=== PATIENT | male | born 1990 | race Caucasian/White ===

== ENCOUNTER 2017-12-31 12:27 | Emergency (ER) | payer MEDICAID, OTHER ==
[~2017-12-31] VITALS: Ht 190.5 cm; Wt 86.2 kg
[2017-12-31] MEDS ORDERED: fentaNYL/PF 50MCG/1 ML 2ML syringe IV ONE ×2 (12:55→13:05)
[2017-12-31] MEDS ORDERED: ondansetron/PF 4mg/2ml inj IV ONE (12:55)
[2017-12-31] MEDS ORDERED: TETanus/Pertussis (Acell)/Diphther VAC/PF (Tdap-Adult) 0.5ml syringe IM ONE (13:05)
[2017-12-31] MEDS ORDERED: proCHLORperazine 10 MG/2 ml inj IV ONE (13:05)
[2017-12-31] MEDS ORDERED: BUPIVAcaine/PF 2.5 mg/ml (0.25%) 30ml vial IJ ONE ×2 (13:05→14:50)
[2017-12-31] MEDS ORDERED: iohexol 300mg/ml 100ml inj. ONE (13:12)
[2017-12-31 13:19] LABS: INR 1.1 INR; PARTIAL THROMBOPLASTIN TIME 22 SECONDS (22-32); PROTHROMBIN TIME 11.1 SECONDS (9.0-12.0)
[2017-12-31 13:49] LABS: CKMB RELATIVE INDEX 0.4 RATIO (0-2.5); CREATINE KINASE 427 U/L (39-308)
[2017-12-31 14:05] LABS: TROPONIN I < 0.04 NG/ML (0.0-0.05)
[2017-12-31 14:06] LABS: ETHANOL < 0.010 GM/DL (0.0-0.010)
[2017-12-31] MEDS ORDERED: BUPIVAcaine/PF 2.5 mg/ml (0.25%) 30ml vial ONE (14:48)
[2017-12-31] MEDS ORDERED: LIDOcaine Viscous 15ml cup MM STA (14:57)
[2017-12-31] MEDS ORDERED: ceFAZolin inj. 2,000 MG in normal saline 100ml IV soln 100 ML IV ONE (15:15)
[2017-12-31] MEDS ORDERED: bacitracin 15gm ointment TP ONE (15:25)
[2017-12-31] MEDS ORDERED: ceFAZolin inj. 2,000 MG in dextrose 5%-water 100 ML IV SCH (16:00)
[2017-12-31 16:31] LABS: URINE AMPHETAMINE SCREEN NEGATIVE (Neg); URINE BARBITUATE SCREEN NEGATIVE (Neg); URINE BENZODIAZEPINES SCREEN NEGATIVE (Neg); URINE CANNABINOID SCREEN POSITIVE (Neg); URINE COCAINE SCREEN NEGATIVE (Neg); URINE METHADONE SCREEN NEGATIVE (Neg); URINE OPIATE SCREEN NEGATIVE (Neg); URINE PHENCYCLIDINE SCREEN NEGATIVE (Neg)
[2017-12-31 16:34] LABS: CLARITY,URINE CLEAR (Clear); COLOR,URINE YELLOW (Yellow); GLUCOSE, URINE NEGATIVE (Neg); KETONES,URINE 15 mg/dl (Neg); LEUKOCYTE ESTERASE ,URINE NEGATIVE (Neg); NITRITES, URINE NEGATIVE (Neg); OCCULT BLOOD,URINE TRACE-INTACT (Neg); PH,URINE 5.5 (4.8-8.0); PROTEIN,URINE 30 mg/dl (Neg); UROBILINOGEN,URINE 0.2 E.U/dL (0.2-1.0)
[2017-12-31 16:36] LABS: UA COLLECTION TYPE CLN CATCH MIDSTREAM
[2017-12-31] MEDS: fentaNYL/PF 50MCG/1 ML 2ML syringe IV PRN ×2 (16:39→17:05)
[2017-12-31] MEDS ORDERED: HYDR-565 PO (16:40)
[2017-12-31] MEDS ORDERED: ONDA4TAB9 PO (16:40)
[2017-12-31] MEDS ORDERED: CEPH-572 PO (16:40)
[2017-12-31 16:51] LABS: BACTERIA,URINE NONE SEEN /HPF (Neg); MUCUS STRANDS NONE SEEN /LPF (Neg); RBC,URINE NONE SEEN /HPF (0-2); SQUAMOUS EPITHELIAL CELL,UR NONE SEEN /LPF (FEW); WBC,URINE NONE SEEN /HPF (0-4)
[2017-12-31 17:57] LABS: BASOPHILS % (AUTO) 0.4 % (0-1); EOSINOPHILS # (AUTO) 0.2 X10'3 (0-0.9); HEMATOCRIT 43.2 % (42.0-52.0); HEMOGLOBIN 14.8 g/dl (14.0-17.9); LYMPHOCYTES # (AUTO) 2.9 X10'3 (1.1-4.8); LYMPHOCYTES % (AUTO) 31.4 % (21-51); MEAN CORPUSCULAR HEMOGLOBIN 31.3 PG (27.0-31.0); MEAN CORPUSCULAR HGB CONC 34.4 % (33.0-36.5); MEAN CORPUSCULAR VOLUME 91.1 FL (78-98); MEAN PLATELET VOLUME 8.1 FL (7.4-10.4); MONOCYTES # (AUTO) 0.5 X10'3 (0-0.9); MONOCYTES % (AUTO) 5.7 % (2-12); NEUTROPHILS # (AUTO) 5.6 X10'3 (1.8-7.7); NEUTROPHILS % (AUTO) 60.5 % (42-75); PLATELET COUNT 210 X10'3 (140-440); RED BLOOD COUNT 4.74 X10'6 (4.70-6.10); RED CELL DISTRIBUTION WIDTH 13.2 % (11.5-14.5); WHITE BLOOD COUNT 9.3 X10'3 (4.5-11.0)
[2017-12-31 18:42] VITALS: BP 118/52
== END 2017-12-31 18:45 | disposition home or self-care (01) ==
LOC: ER 12:29
DX: S06.0X0A Concussion without loss of consciousness, initial encounter (principal); S01.81XA Laceration without foreign body of other part of head, initial encounter; S61.411A Laceration without foreign body of right hand, initial encounter; S01.112A Laceration without foreign body of left eyelid and periocular area, initial encounter; S16.1XXA Strain of muscle, fascia and tendon at neck level, initial encounter; S20.219A Contusion of unspecified front wall of thorax, initial encounter; S30.811A Abrasion of abdominal wall, initial encounter; S80.212A Abrasion, left knee, initial encounter; S40.812A Abrasion of left upper arm, initial encounter; W17.81XA Fall down embankment (hill), initial encounter; Y93.55 Activity, bike riding; Y92.89 Other specified places as the place of occurrence of the external cause; Y99.8 Other external cause status
CPT/HCPCS: 12002; 12014; 36415; 70450; 70486; 71260; 72125; 73030; 73130; 74177; 80305; 80320; 81001; 82550; 82553; 84484; 85025; 85610; 85730; 90471; 90715; 93005; 96365; 96375; 96376; 99285; A6223; A6255; A6449; J0690; J0780; J2405; J3010; J3490; J7030; Q9967; J7060